=== PATIENT | male | born 1955 | race Caucasian/White ===

== ENCOUNTER 2016-11-04 11:41 | Day surgery (SDC) | payer BC ==
[~2016-11-04 11:41] MED LIST: LIDOCAINE 2% MDV (20MG/ML) 20ML VIAL IV ONE; MIDAZOLAM HCL 2MG/2ML VIAL IV ONE; PROPOFOL 10 MG/ML VIAL IV ONE
--- NOTE | 2016-11-05 12:51 | Operative Note ---
DATE OF SURGERY: 11/04/2016 OPERATION: COLONOSCOPY with cold forceps polypectomy. PREOPERATIVE DIAGNOSIS: History of colon polyps. POSTOPERATIVE DIAGNOSIS: Distal sigmoid colon polyp. PREPARATION QUALITY: Good. ESTIMATED BLOOD LOSS: Minimal. SPECIMENS: Sigmoid polyp. COMPLICATIONS: None apparent. PROCEDURE: After informed consent was obtained from the patient, he was placed in the left lateral decubitus position in the endoscopy suite, sedated and monitored by the department of anesthesia. Digital rectal exam was unremarkable. A well-lubricated [id number] colonoscope was inserted into the rectum and advanced to the cecum. The colon was quite redundant and tortuous. Numerous scope reductions and loop reductions were performed. The cecum, ileocecal valve, appendiceal orifice, ascending colon, transverse colon, and descending colon were free of inflammatory changes, mass lesions, or polyps. There was a diminutive distal sigmoid colon polyp identified and removed with a cold forceps. The remainder of the sigmoid colon and rectum were unrevealing. J-turn views of the anorectum were unremarkable. The endoscope was straightened, the rectal ampulla deflated, and the endoscope was removed. RECOMMENDATIONS: I would suggest the patient resume his medications and diet. He will require repeat exam in 5 to 10 years pending tissue histology. As always, thank you for allowing me to participate in the healthcare of your patients. CC: LORA BOWMAN D.O. PAULA
== END 2016-11-04 14:07 | disposition home or self-care (01) ==
LOC: HOP 11:41
PROVIDERS: ATTEND Internal Medicine Gastroenterology
DX: K63.5 Polyp of colon (principal); Z86.010 Personal history of colon polyps